=== PATIENT | female | born 1995 | race Asian ===

== ENCOUNTER 2018-03-21 05:29 | Emergency (ER) | payer OTHER ==
[~2018-03-21] VITALS: Ht 160 cm; Wt 86.4 kg
[2018-03-21] MEDS ORDERED: ALBU8.5H8 IH (05:39)
[2018-03-21] MEDS ORDERED: MONT10TA21 PO (05:39)
[2018-03-21] MEDS ORDERED: ALBUTEROL SULFATE 5 MG/ML 20 ML NEB SOLN [BULK] NEB ONE (06:15)
[2018-03-21] MEDS ORDERED: IPRATROPIUM BROMIDE 0.5 MG/2.5 ML NEB SOLUTION NEB ONE (06:15)
[2018-03-21] MEDS ORDERED: PredniSONE 20 MG TABLET PO ONE (06:15)
[2018-03-21] MEDS ORDERED: 0.9% SODIUM CHLORIDE 15 ML NEB SOLUTION NEB ONE (06:25)
[2018-03-21 06:49] VITALS: BP 117/75
[2018-03-21] MEDS ORDERED: ALBUTEROL SULFATE HFA 90 MCG/PUFF 8 GM INHALER IH ONE (08:45)
== END 2018-03-21 09:18 | disposition home or self-care (01) ==
LOC: EMS 05:30
DX: J45.909 Unspecified asthma, uncomplicated (principal); F17.210 Nicotine dependence, cigarettes, uncomplicated; F12.90 Cannabis use, unspecified, uncomplicated
CPT/HCPCS: 71045; 94644; 99285; J7512; J3535

== ENCOUNTER 2018-06-07 05:55 | Emergency (ER) | payer OTHER ==
[~2018-06-07] VITALS: Ht 160 cm; Wt 86.4 kg
[~2018-06-07 05:55] MED LIST: ALBU8.5H8 IH; MONT10TA21 PO
[2018-06-07] MEDS ORDERED: ALBUTEROL SULFATE 2.5 MG/0.5 ML NEB SOLUTION NEB ONE ×2 (06:15→07:00)
[2018-06-07] MEDS ORDERED: IPRATROPIUM BROMIDE 0.5 MG/2.5 ML NEB SOLUTION NEB ONE ×3 (06:15→09:45)
[2018-06-07] MEDS ORDERED: PredniSONE 20 MG TABLET PO ONE (06:30)
[2018-06-07] MEDS ORDERED: ALBUTEROL SULFATE 5 MG/ML 20 ML NEB SOLN [BULK] NEB ONE (09:45)
[2018-06-07 12:13] VITALS: BP 136/76
[2018-06-07] MEDS ORDERED: ALBUTEROL SULFATE HFA 90 MCG/PUFF 8 GM INHALER IH ONE (12:15)
== END 2018-06-07 12:16 | disposition home or self-care (01) ==
LOC: EMS 05:55
DX: J45.901 Unspecified asthma with (acute) exacerbation (principal); F17.210 Nicotine dependence, cigarettes, uncomplicated; F12.90 Cannabis use, unspecified, uncomplicated
CPT/HCPCS: 94640; 94644; 99285; J7512; 94060; J3535

== ENCOUNTER 2019-09-25 11:25 | Emergency (ER) | payer OTHER ==
[~2019-09-25] VITALS: Ht 160 cm; Wt 79.5 kg
[2019-09-25 11:50] VITALS: BP 113/62
== END 2019-09-25 14:35 | disposition left against medical advice (07) ==
LOC: EMS 11:36
DX: R52 Pain, unspecified (principal); Z53.21 Procedure and treatment not carried out due to patient leaving prior to being seen by health care provider

== ENCOUNTER 2024-10-28 14:14 | Emergency (ER) | payer OTHER ==
[~2024-10-28] VITALS: Ht 160 cm; Wt 81.8 kg
[~2024-10-28 14:14] MED LIST changes: +MONT-35 PO; -MONT10TA21 PO
[2024-10-28 16:57] LABS: PLATELET COUNT (AUTO) 336 K/uL (150-450); RED BLOOD CELL COUNT(AUTO) 4.20 MIL/uL (4.00-5.20); RED CELL DISTRIBUTION WIDTH 13.5 % (11.5-14.5); WHITE BLOOD COUNT (AUTO) 9.2 K/uL (4.5-11.0)
[2024-10-28 17:07] LABS: CALCIUM, TOTAL 8.8 mg/dL (8.8-10.5); CREATININE 0.75 mg/dL (0.60-1.30); GLOMERULAR FILTR. RATE CALC > 60 mL/min (>60); GLUCOSE,RANDOM 93 mg/dL (70-110); SODIUM SERUM 139 mmol/L (136-145); UREA NITROGEN, BLOOD 11 mg/dL (7-18)
[2024-10-28] MEDS: IPRATROPIUM BROMIDE 0.5 MG/2.5 ML NEB SOLUTION NEB ONE (17:14)
[2024-10-28] MEDS: ALBUTEROL SULFATE 2.5 MG/0.5 ML NEB SOLUTION NEB ONE (17:14)
[2024-10-28 17:17] VITALS: PULSE 65; RESP 16; O2SAT 100
[2024-10-28 17:18] VITALS: PULSE 65; RESP 16; O2SAT 100
[2024-10-28] MEDS: KETOROLAC TROMETHAMINE 30 MG/ML VIAL IM ONE (17:20)
[2024-10-28] MEDS: LIDOCAINE 5% TRANSDERMAL PATCH TD ONE (17:21)
[2024-10-28 19:12] LABS: APPEARANCE,URINE HAZY (CLEAR); GLUCOSE, URINE (UA) NEGATIVE (NEGATIVE); LEUKOCYTE ESTERASE ,URINE TRACE (NEGATIVE); NITRATE,URINE NEGATIVE (NEGATIVE); OCCULT BLOOD,URINE NEGATIVE (NEGATIVE); SPECIFIC GRAVITIY, URINE 1.038 (1.003-1.030)
[2024-10-28 19:44] LABS: SULFOSALICYLIC ACID,URINE 1+ (Negative)
[2024-10-28 19:45] LABS: SQUAMOUS EPITHELIAL CELL,UR Few /LPF (None Seen)
[2024-10-28] MEDS ORDERED: PRED-554 PO (20:21)
[2024-10-28] MEDS ORDERED: LIDO-57 TP (20:21)
[2024-10-28 20:32] VITALS: BP 132/78; PULSE 74; RESP 20; TEMP 97.3; O2SAT 100
== END 2024-10-28 21:13 | disposition home or self-care (01) ==
LOC: EMS 14:23
DX: J45.909 Unspecified asthma, uncomplicated (principal); M79.18 Myalgia, other site; R07.81 Pleurodynia; F17.210 Nicotine dependence, cigarettes, uncomplicated; F12.90 Cannabis use, unspecified, uncomplicated; Z79.899 Other long term (current) drug therapy
CPT/HCPCS: 99284; 71045; 80048; 81001; 84703; 85025; 87086; 36415; 94640; 96372; J1885; J7512; 81002; 94760